=== PATIENT | female | born 1995 | race Caucasian/White ===

== ENCOUNTER 2019-07-06 23:02 | Emergency (ER) | payer OTHER ==
[~2019-07-06] VITALS: Ht 170.2 cm; Wt 74.8 kg
[2019-07-06] MEDS ORDERED: SPIRONOLACTONE25 MG (23:13)
[2019-07-06] MEDS ORDERED: ESTRADIOL 1 MG T1 M1 PO (23:14)
[2019-07-06] MEDS ORDERED: PROZAC20 MG PO (23:14)
[2019-07-06] MEDS ORDERED: PROAIR HFA8.5 GM ×2 (23:18→23:23)
[2019-07-06] MEDS ORDERED: BUSPIRONE HCL10 MG PO (23:18)
[2019-07-06] MEDS ORDERED: OLANZAPINE5 MG (23:23)
[2019-07-07] MEDS ORDERED: VENTOLIN HFA 1818 GM INH (01:08)
[2019-07-07] MEDS ORDERED: PREDNISONE 20 M20 MG PO (01:08)
[2019-07-07 01:21] VITALS: BP 112/70
--- NOTE | 2019-07-08 10:50 | EKG ---
[address] [address] ELECTROCARDIOGRAM REPORT Name: JAMES BAUER Room #: DEP MALISSA Dubois#: [id number] Admission: 07/06/19 Attend Phys: Discharge: 07/07/19 Date of : [birth year] Report #: [id number] THIS REPORT FOR: //name// [facility] ED Test Date: 2019-07-06 Test Time: 23:16:31 Pat Name: JAMES BAUER Department: Room: Gender: F Help Desk Administrator: karen : 1995 Requested By: Maile Mancia Order Number: [id number] MD: Kody Santiago Measurements Intervals [place] Rate: 75 P: 59 AL: 149 QRS: 64 QRSD: 86 T: 45 QT: 402 QTc: 449 Interpretive Statements Sinus rhythm Probable left atrial enlargement No previous ECG available for comparison Electronically Signed On 07-08-2019 10:49:50 CDT by Kody Santiago [email or web address] <ELECTRONICALLY SIGNED> By: Kody Santiago MD 07/08/19 1049 [id number] Kody Santiago MD /EPI
== END 2019-07-07 01:22 | disposition home or self-care (01) ==
LOC: ER 23:02
DX: J45.901 Unspecified asthma with (acute) exacerbation (principal); Z77.22 Contact with and (suspected) exposure to environmental tobacco smoke (acute) (chronic); Z91.012 Allergy to eggs; Z88.5 Allergy status to narcotic agent

== ENCOUNTER 2021-10-06 17:47 | Emergency (ER) | payer OTHER, BC ==
[~2021-10-06] VITALS: Ht 167.6 cm; Wt 79.4 kg
[~2021-10-06 17:47] MED LIST: BUSPIRONE HCL10 MG PO; ESTRADIOL 1 MG T1 M1 PO; OLANZAPINE5 MG; PREDNISONE 20 M20 MG PO; PROAIR HFA8.5 GM; PROZAC20 MG PO; SPIRONOLACTONE25 MG; VENTOLIN HFA 1818 GM INH
[2021-10-06] MEDS ORDERED: ZANAFLEX4 MG PO (20:41)
[2021-10-06] MEDS ORDERED: MOBIC7.5 MG PO (20:41)
[2021-10-06 21:30] VITALS: BP 112/80
== END 2021-10-06 21:31 | disposition home or self-care (01) ==
LOC: ER 17:47
DX: S16.1XXA Strain of muscle, fascia and tendon at neck level, initial encounter (principal); R51.9 Headache, unspecified; J45.909 Unspecified asthma, uncomplicated; Z88.5 Allergy status to narcotic agent; Z91.012 Allergy to eggs; Z79.899 Other long term (current) drug therapy; V49.59XA Passenger injured in collision with other motor vehicles in traffic accident, initial encounter; Y93.89 Activity, other specified; Y92.413 State road as the place of occurrence of the external cause; Y99.9 Unspecified external cause status